=== PATIENT | male | born 1965 | race Caucasian/White ===

== ENCOUNTER 2018-04-22 23:36 | Emergency (ER) | payer OTHER ==
[~2018-04-22] VITALS: Ht 180.3 cm; Wt 90.7 kg
[2018-04-22 23:43] VITALS: BP 156/91
[2018-04-23] MEDS ORDERED: methylPREDNISolone SOD SUCC 125 MG/2 ML VL IM ONE (01:45)
[2018-04-23] MEDS ORDERED: KETOROLAC TROMETH 60MG/2ML VIAL IM ONE (01:45)
== END 2018-04-23 01:59 | disposition home or self-care (01) ==
LOC: ER 23:37
DX: G89.4 Chronic pain syndrome (principal); M54.5 Low back pain; Z88.2 Allergy status to sulfonamides
CPT/HCPCS: 96372; 99284; J1885; J2930